=== PATIENT | female | born 1940 | race Caucasian/White ===

== ENCOUNTER → 2016-07-08 | Day surgery (SDC) | payer MEDICARE ==
[~2016-07-08] MED LIST: BUPIVACAINE HCL PF 0.25% 30 ML VIAL ONE; CLINDAMYCIN PHOS 600 MG/4 ML VIAL ONE; LACTATED RINGER'S 1000 ML INJ 1,000 ML ONE; MIDAZOLAM HCL 2 MG/2 ML VIAL ONE; ONDANSETRON HCL 4 MG/2 ML VIAL IV PUSH ONE; PROPOFOL 200 MG/20 ML AMP IV ONE; ceFAZolin 2 GM PREMIX 50 ML ONE; oxyCODONE/ACETAMINOPHEN 5 MG/325 MG TAB ONE
--- NOTE | 2016-07-11 20:52 | MP ---
cc: CAMI BEAUCHAMP DATE OF SURGERY July 08, [address] Cami Beauchamp. 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 PREOPERATIVE DIAGNOSIS Left hallux rigidus. POSTOPERATIVE DIAGNOSES Left hallux rigidus. PROCEDURE PERFORMED Left hallux metatarsal-phalangeal joint fusion. PATHOLOGY SENT None. ANESTHESIA General. HEMOSTASIS Pneumatic ankle tourniquet at 250 mmHg for 78 minutes. ESTIMATED BLOOD LOSS Less than 5 ml. MATERIALS USED Arthrex locking and nonlocking screws as well as an Arthrex plate, 3-0 Monocryl, 3-0 Prolene. INJECTABLES 10 mL of 0.5% Marcaine plain COMPLICATIONS None. INDICATIONS Ms. 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 She had a MPJ fusion of the right foot approximately 6 months ago and is very happy with the results and has been noticing a significant reduction in pain, however, the left MPJ continues to worsen. She has elected to move forward with the fusion of the left MPJ today. The consent was signed. The procedure was explained. No guarantees were given. PROCEDURE DETAILS Under mild sedation the patient was brought into the operating room and placed on the operating table in supine position. Following IV sedation a pneumatic ankle tourniquet was placed around the left ankle. This was then scrubbed, prepped and draped in the usual aseptic manner. Attention was directed to the dorsal aspect of the first metatarsal-phalangeal joint where a linear longitudinal incision was created and deepened through skin and subcutaneous tissue until the joint level had been reached. There was minimal spurring, however, there was hypertrophic bone at the medial metatarsal head and a very large deficit of cartilage in the central aspect of the metatarsal head taking up approximately one third of the cartilaginous surface. The medial eminence of bone was removed using a rongeur and the Arthrex reamers were used to remove the opposing surfaces of cartilage from the MPJ. A K-wire was then used to retrograde drill the metatarsal and the proximal phalanx. The area was then flushed with copious amounts of sterile saline and a temporary K-wire was placed from distal medial to proximal lateral. It was viewed under fluoroscopy and noted to be good alignment for a cross screw so a 3.0 cannulated partially threaded cross screw was inserted. It afforded excellent compression. The K-wire was removed and after reviewing several plates under fluoroscopy the appropriate plate was selected. An assortment of locking and nonlocking screws were used to secure the plate and allow it to sit as flush as possible on the bone. The area was then flushed with copious amounts of sterile saline, checked under fluoroscopy the plate was noted to be in an appropriate position. The screws were appropriate length and the first ray was in anatomical position. This was previously checked multiple times on fluoroscopy as well as with simulated weightbearing. Deep and subcutaneous tissues were closed with 3-0 Monocryl, skin was closed with 3-0 Prolene. 10 mL of 0.25% Marcaine plain were injected around the surgical site. The pneumatic ankle tourniquet was released. There was a prompt hyperemic response to all digits of the left foot. A sterile dressing of Adaptic, 4x4s and a well-padded posterior splint were applied. The patient tolerated the procedure and the anesthesia well. She will recover in the PACU for a period of time before being discharged home with written and oral postoperative instructions. Cami BARRON/KK /11:29 AM /7:33 PM
== END | disposition home or self-care (01) ==
LOC: ESDC 07:21
PROVIDERS: ATTEND Podiatrist Foot & Ankle Surgery
DX: M20.22 Hallux rigidus, left foot (principal)
CPT/HCPCS: 01480; 28750; 73630; 76000; J2250; J2405; J3010; J7120; C1713; J0690